=== PATIENT | male | born 1990 | race Caucasian/White ===

== ENCOUNTER 2021-05-22 07:20 | Emergency (ER) | payer OTHER ==
[~2021-05-22] VITALS: Ht 182.9 cm; Wt 81.6 kg
[2021-05-22 07:38] LABS: BASOPHIL 0.8 % (0-2); EOSINOPHIL 3.3 % (0-5); HCT 51.3 % (42.0-52.0); HGB 17.3 g/dl (13.2-18.0); LYMPHOCYTE 47.9 % (15-48); MCH 30.1 pg (25.0-31.0); MCHC 33.7 g/dL (32.0-36.0); MCV 89.2 fL (78.0-100.0); MONOCYTE 11.7 % (0-12); MPV 9.8 fL (6.0-9.5); NEUTROPHIL 36.1 % (41-80); NRBC 0; PLT 322 K/uL (150-400); RBC 5.75 M/uL (4.70-6.00); RDW 12.6 % (11.5-14.0); WBC 8.5 K/uL (4.0-10.5)
[2021-05-22 08:09] LABS: ALBUMIN 4.4 g/dL (3.4-5.0); BILIRUBIN - TOTAL 0.4 mg/dL (0.2-1.0); BUN/CREAT RATIO (CALC) 16.7 RATIO; CREATININE 0.84 mg/dL (0.67-1.17); GLOBULIN (CALCULATION) 3.1 g/dL; POTASSIUM 4.1 mmol/L (3.5-5.1); TOTAL PROTEIN 7.5 g/dL (6.4-8.2)
[2021-05-22] MEDS ORDERED: OMEPRAZOLE40 MG PO (09:05)
[2021-05-22 09:24] LABS: CORONAVIRUS 2019 SARS-COV-2 NEGATIVE (NEGATIVE); INFLUENZA A NAA NEGATIVE (NEGATIVE)
== END 2021-05-22 09:30 | disposition home or self-care (01) ==
LOC: FER 07:20
PROVIDERS: Internal Medicine
DX: K21.9 Gastro-esophageal reflux disease without esophagitis (principal); R07.89 Other chest pain; Z20.822 Contact with and (suspected) exposure to COVID-19
CPT/HCPCS: 36415; 71045; 80053; 83690; 84443; 84484; 85025; U0002